=== PATIENT | male | born 1945 | race Two or more races ===

== ENCOUNTER 2018-07-18 09:27 | Emergency (ER) | payer MEDICARE ==
[2018-07-18 09:38] VITALS: BP 143/81
--- NOTE | 2018-07-18 10:16 | UC ---
Skin Complaint HPI - HPI Summary HPI Summary: Patient is a 72-year-old male who presents to the urgent care with a chief complaint of tick bite. He reports that the tick by a car yesterday in the afternoon. He removed the tick which is not engorged but he couldnt removed the tick. Therefore he came into the urgent care for further workup and management. He denies any pain, denies any rash. He has no other complaints. - History of Current Complaint Chief Complaint: UCSkin Time Seen by Provider: 07/18/18 10:00 Stated Complaint: TICK BITE Hx Obtained From: Patient Onset/Duration: Sudden Onset Onset Severity: Mild Pain Intensity: 0 - Allergy/Home Medications Allergies/Adverse Reactions: Allergies Allergy/AdvReac Type Severity Reaction Status Date / Time No Known Allergies Allergy Verified 07/18/18 09:37 Home Medications: Home Medications NK [No Home Medications Reported] 07/18/18 [History Confirmed 07/18/18] PMH/Surg Hx/FS Hx/Imm Hx Previously Healthy: Yes - Surgical History Surgical History: Yes Surgery Procedure, Year, and Place: LYMPH NODE DISSECTION- 1978 - Family History Known Family History: Positive: None, Non-Contributory - Social History Alcohol Use: Occasionally Substance Use Type: None Smoking Status (MU): Former Smoker Review of Systems All Other Systems Reviewed And Are Negative: Yes Constitutional: Positive: Negative Skin: Positive: Other - tick bite Eyes: Positive: Negative ENT: Positive: Negative Respiratory: Positive: Negative Cardiovascular: Positive: Negative Gastrointestinal: Positive: Negative Genitourinary: Positive: Negative Motor: Positive: Negative Neurovascular: Positive: Negative Musculoskeletal: Positive: Negative Neurological: Positive: Negative Psychological: Positive: Negative Is Patient Immunocompromised?: No Physical Exam - Summary Physical Exam Summary: VITAL SIGNS: Reviewed. GENERAL: Patient is a well developed and nourished male who is lying comfortable in the stretcher. Patient is not in any acute respiratory distress. HEAD AND FACE: No signs of trauma. No ecchymosis, hematomas or skull depressions. No sinus tenderness. EYES: PERRLA, EOMI x 2, No injected conjunctiva, no nystagmus. EARS: Hearing grossly intact. Ear canals and tympanic membranes are within normal limits. MOUTH: Oropharynx within normal limits. NECK: Supple, trachea is midline, no adenopathy, no JVD, no carotid bruit, no c- spine tenderness, neck with full ROM. CHEST: Symmetric, no tenderness at palpation LUNGS: Clear to auscultation bilaterally. No wheezing or crackles. CVS: Regular rate and rhythm, S1 and S2 present, no murmurs or gallops appreciated. ABDOMEN: Soft, non-tender. No signs of distention. No rebound no guarding, and no masses palpated. Bowel sounds are normal. EXTREMITIES: FROM in all major joints, no edema, no cyanosis or clubbing. NEURO: Alert and oriented x 3. No acute neurological deficits. Speech is normal and follows commands. SKIN: tick bite in the left tight. Triage Information Reviewed: Yes Appearance: Well-Appearing, No Pain Distress, Well-Nourished Vital Signs: Initial Vital Signs Temp 97.3 F 07/18/18 09:33 Pulse 72 07/18/18 09:33 Resp 18 07/18/18 09:33 BP 143/81 07/18/18 09:33 Pulse Ox 97 07/18/18 09:33 Course/Dx - Course Course Of Treatment: In the urgent care we attempted to remove the rest of the tick. I apply BACITRACIN to the area. Since is less than 72 hours the patient doesnt need any prophylactic treatment. Patient will be discharged home with follow-up with PCP. - Diagnoses Provider Diagnosis: Tick bite Discharge - Sign-Out/Discharge Documenting (check all that apply): Patient Departure All imaging exams completed and their final reports reviewed: No Studies - Discharge Plan Condition: Stable Disposition: HOME Patient Education Materials: Tick Bite (ED) Referrals: Elbert Hudson MD [Primary Care Provider] - Additional Instructions: F/U with PCP - Billing Disposition and Condition Condition: STABLE Disposition: Home
== END 2018-07-18 10:20 | disposition home or self-care (01) ==
LOC: UCEAST 09:27
DX: T63.481A Toxic effect of venom of other arthropod, accidental (unintentional), initial encounter (principal); Y92.9 Unspecified place or not applicable; Z87.891 Personal history of nicotine dependence
CPT/HCPCS: 99211; G0463